=== PATIENT | female | born 1990 | race Caucasian/White ===

== ENCOUNTER → 2022-08-15 | Outpatient (CLI) | payer BC, SELFPAY ==
--- NOTE | 2022-08-15 10:48 | VDLE_ITS ---
Reason For Study: Pain RIGHT GSV is normal. CFV is compressible, spontaneous, phasic, competent and demonstrates normal augmentation. FV is compressible, spontaneous, phasic, competent and demonstrates normal augmentation. POP V is compressible, spontaneous, phasic, competent and demonstrates normal augmentation. T/P Trunk is compressible. PTV is compressible. RT PerV is compressible. Nonvascularized structure noted in the right popliteal fossa that measures 2.93 x 0.95 x 5.71 cm. Procedure This is a venous duplex using B-mode, color flow and spectral Doppler. Exam performed in department. A preliminary report was called and/or faxed to [facility]. VL/Venous Duplex US, Unilateral Interpretation Summary Deep veins of the right lower extremity are patent and compressible segmentally . There is no evidence of right lower extremity deep vein thrombosis. Valvular competence elijah ears intact within the proximal deep venous system on the right . The right great saphenous vein a ppears patent and compressible segmentally. A non-vascular, hypoechoic structure is noted in the right popliteal space, measuring 2.93 cm x 0.95 cm x 5.71 cm. This probably represents a poplit eal cyst. Clinical correlation is advised. Ordering Physician: Nell Mobley Referring Physician: Juan Maurer Performed By: Carol Larson RVT
== END | disposition home or self-care (01) ==
PROVIDERS: PCP Family Medicine; Referring Provider Physician Assistant Surgical; Visit Provider Physician Assistant Surgical
DX: M79.661 Pain in right lower leg (principal)
CPT/HCPCS: 93971